=== PATIENT | female | born 1980 | race Caucasian/White ===

== ENCOUNTER → 2017-08-30 | Outpatient (CLI) | payer OTHER ==
[~2017-08-30] MED LIST: ALBU90OI6; AZIT250 PO; BIRTH CONTROL; BUPR150T2 PO; DULO60 PO; ESOM20; FAMO20 PO; FLUT110OIA INH; GLYC2 PO; HYDACE5 PO; HYDSUL200 PO; IBUP800 PO; IBUPROFEN; LEVFLO500 PO; LEVSOD25 PO; LEVSOD50 PO; LORA10 PO; LORA10ER PO; MULVITMINE PO; NAPR500 PO; OMEP20ER PO; ONDA8 PO; ONDA8ODT MM; PANT40 PO; POLTRIOPSO BOTHEYES; PROM25 PO; PROM25S PR; PSEU120ER PO; QVAR7.3 G1 INH; RXHYDACE PO; SERT50 PO; SUCR1 PO; VENL150ER PO; Valtrex1000 MG PO; [UNRECOGNIZED DRUG - OTHER] PO; [UNRECOGNIZED DRUG - REMARK]
[2017-08-30 14:57] LABS: Free Thyroxine 1.04 ng/dL (0.70-1.60)
[2017-08-30 15:02] LABS: Thyroid Stimulating Hormone 4.55 uIU/mL (0.360-4.800); Triiodothyronine, Free 2.93 pg/mL (2.18-3.98)
== END ==
LOC: LAB 13:08
PROVIDERS: Nurse Practitioner Family
DX: E03.9 Hypothyroidism, unspecified (principal)
CPT/HCPCS: 84439; 84443; 84481

== ENCOUNTER → 2017-10-19 | Outpatient (CLI) | payer OTHER | LOC: LAB 16:09 | DX: R20.0 Anesthesia of skin (principal); R20.2 Paresthesia of skin | CPT/HCPCS: 82607; 82746 ==

== ENCOUNTER → 2018-04-13 | Outpatient (CLI) | payer OTHER ==
[2018-04-13 15:08] LABS: Free Thyroxine 1.22 ng/dL (0.70-1.60)
[2018-04-13 15:10] LABS: Thyroid Stimulating Hormone 2.75 uIU/mL (0.360-4.800)
== END ==
LOC: LAB SHORT 09:30 → LAB 09:30
PROVIDERS: Registered Nurse
DX: E03.9 Hypothyroidism, unspecified (principal)
CPT/HCPCS: 84439; 84443

== ENCOUNTER 2019-06-08 05:38 | Emergency (ER) | payer OTHER ==
[~2019-06-08] VITALS: Ht 162.6 cm; Wt 72.6 kg
[~2019-06-08 05:38] MED LIST changes: +CLARITIN10 MG PO; -LORA10 PO
[2019-06-08] MEDS ORDERED: NUCALA100 MG SC (06:13)
[2019-06-08] MEDS ORDERED: FLUT1DIS8 INH (06:14)
[2019-06-08] MEDS ORDERED: CLIN300 PO (06:14)
== END 2019-06-08 07:30 | disposition home or self-care (01) ==
LOC: ER 05:38
DX: K04.7 Periapical abscess without sinus (principal); Z88.8 Allergy status to other drugs, medicaments and biological substances; Z88.0 Allergy status to penicillin; Z88.1 Allergy status to other antibiotic agents; Z79.899 Other long term (current) drug therapy
CPT/HCPCS: 96365; 99282-25

== ENCOUNTER → 2022-07-12 | Outpatient (CLI) | payer OTHER ==
[~2022-07-12] MED LIST changes: +CLIN300 PO; +FLUT1DIS8 INH; +NUCALA100 MG SC
== END | disposition home or self-care (01) ==
LOC: LAB SHORT 08:25
DX: F41.9 Anxiety disorder, unspecified (principal); F32.9 Major depressive disorder, single episode, unspecified; R53.83 Other fatigue; R20.2 Paresthesia of skin; Z98.84 Bariatric surgery status
CPT/HCPCS: 82306; 84439; 85651

== ENCOUNTER → 2022-07-28 | Outpatient (CLI) | payer OTHER | END | disposition home or self-care (01) | LOC: LAB 16:00 → LAB SHORT 16:00 | DX: R53.83 Other fatigue (principal); Z87.39 Personal history of other diseases of the musculoskeletal system and connective tissue | CPT/HCPCS: 86880 ==

== ENCOUNTER → 2022-09-27 | Outpatient (CLI) | payer OTHER ==
[2022-09-27 22:06] LABS: Bun/Creatinine Ratio 17.6 (12.0-20.0); Calcium, Blood 9.1 mg/dL (8.5-10.1); Creatinine, Blood 0.62 mg/dL (0.40-1.00); Potassium, Blood 4.5 mmol/L (3.5-5.5); Thyroid Stimulating Hormone 4.77 uIU/mL (0.360-4.800)
== END | disposition home or self-care (01) ==
LOC: LAB SHORT 15:56 → LAB 15:56
PROVIDERS: Nurse Practitioner Family
DX: R53.83 Other fatigue (principal); R73.01 Impaired fasting glucose
CPT/HCPCS: 80048; 83036; 84443

== ENCOUNTER → 2022-11-28 | Outpatient (CLI) | payer OTHER ==
[2022-11-28 16:35] LABS: BASOPHILS ABSOLUTE AUTO 0.04 K/mm3 (0.00-0.23); BASOPHILS PERCENT AUTO 1 % (0-2); EOSINOPHILS ABSOLUTE AUTO 0.03 K/mm3 (0.00-0.68); EOSINOPHILS PERCENT AUTO 1 % (0-6); Hematocrit 37.8 % (33.0-51.0); Hemoglobin 12.8 g/dL (11.5-16.0); IMMATURE GRAN ABSOLUTE AUTO 0.01 K/mm3 (0.00-0.10); IMMATURE GRAN PERCENT AUTO 0 % (0-1); LYMPHOCYTES ABSOLUTE AUTO 1.51 K/mm3 (0.84-5.20); LYMPHOCYTES PERCENT AUTO 30 % (21-46); MONOCYTES ABSOLUTE AUTO 0.27 K/mm3 (0.16-1.47); MONOCYTES PERCENT AUTO 5 % (4-13); Mean Corpuscular HGB 30.4 pg (26.0-34.0); Mean Corpuscular HGB Conc 33.9 g/dL (31.5-36.5); Mean Corpuscular Volume 90 fL (80-100); Mean Platelet Volume 9.3 fL (9.1-12.4); NEUTROPHILS ABSOLUTE AUTO 3.26 K/mm3 (1.96-9.15); NEUTROPHILS PERCENT AUTO 64 % (41-73); Platelet Count 292 K/mm3 (150-400); RDW Coefficient Variation 12.6 % (11.7-14.2); RDW Standard Deviation 41.4 fL (35.1-46.3); Red Blood Cell Count 4.21 M/mm3 (3.80-5.20); White Blood Cell Count 5.12 K/mm3 (4.00-11.30)
[2022-11-28 17:04] LABS: Albumin, Blood 3.8 g/dL (3.4-5.0); Albumin/Globulin Ratio 1.2 (0.8-1.8); Bilirubin, Total 0.3 mg/dL (0.1-1.0); Bun/Creatinine Ratio 15.6 (12.0-20.0); Calcium, Blood 8.8 mg/dL (8.5-10.1); Creatinine, Blood 0.83 mg/dL (0.40-1.00); Globulin, Blood 3.2 g/dL (2.2-4.0)
== END | disposition home or self-care (01) ==
LOC: LAB SHORT 15:21 → LAB 15:21
PROVIDERS: Plastic Surgery
DX: Z01.812 Encounter for preprocedural laboratory examination (principal)
CPT/HCPCS: 80053; 85025

== ENCOUNTER → 2022-11-29 | Outpatient (CLI) | payer OTHER ==
[2022-11-29 19:16] LABS: Percent Saturation 25.2 % (15.0-50.0); Uric Acid, Blood 3.8 mg/dL (2.6-6.0)
[2022-11-29 19:34] LABS: Thyroid Stimulating Hormone 1.53 uIU/mL (0.360-4.800)
== END | disposition home or self-care (01) ==
LOC: LAB SHORT 17:04
PROVIDERS: Internal Medicine Nephrology
DX: M10.9 Gout, unspecified (principal); D51.8 Other vitamin B12 deficiency anemias; D52.8 Other folate deficiency anemias; D50.9 Iron deficiency anemia, unspecified; R94.6 Abnormal results of thyroid function studies
CPT/HCPCS: 82607; 82728; 82746; 83540; 83550; 84443; 84550

== ENCOUNTER → 2022-12-05 | Outpatient (CLI) | payer OTHER ==
[2022-12-05 10:50] LABS: Bun/Creatinine Ratio 12.5 (12.0-20.0); Calcium, Blood 9.2 mg/dL (8.5-10.1); Creatinine, Blood 0.72 mg/dL (0.40-1.00)
== END | disposition home or self-care (01) ==
LOC: LAB 09:10 → LAB SHORT 09:10
PROVIDERS: Plastic Surgery
DX: Z13.89 Encounter for screening for other disorder (principal)
CPT/HCPCS: 80048

== ENCOUNTER 2025-06-23 14:12 | Emergency (ER) | payer OTHER ==
[~2025-06-23] VITALS: Ht 162.6 cm; Wt 63.5 kg
[2025-06-23 15:24] LABS: Source, Urine Clean Catch
[2025-06-23 15:30] LABS: Bilirubin, Urine Neg (Neg); Color, Urine Yellow (P-Yellow); Glucose Qualitative, Urine Neg (Neg); Ketones, Urine 1+ (Neg); Leukocyte Esterase, Urine Neg (Neg); Protein, Urine 1+ (Neg); Specific Gravity, Urine 1.025 (1.003-1.022); Urobilinogen, Urine NORM (Normal)
[2025-06-23 15:31] LABS: BASOPHILS ABSOLUTE AUTO 0.06 K/mm3 (0.00-0.23); BASOPHILS PERCENT AUTO 1 % (0-2); EOSINOPHILS ABSOLUTE AUTO 0.10 K/mm3 (0.00-0.68); EOSINOPHILS PERCENT AUTO 2 % (0-6); Hematocrit 41.5 % (33.0-51.0); Hemoglobin 13.9 g/dL (11.5-16.0); IMMATURE GRAN ABSOLUTE AUTO 0.01 K/mm3 (0.00-0.10); IMMATURE GRAN PERCENT AUTO 0 % (0-1); LYMPHOCYTES ABSOLUTE AUTO 2.00 K/mm3 (0.84-5.20); LYMPHOCYTES PERCENT AUTO 34 % (21-46); MONOCYTES ABSOLUTE AUTO 0.28 K/mm3 (0.16-1.47); MONOCYTES PERCENT AUTO 5 % (4-13); Mean Corpuscular HGB Conc 33.5 g/dL (31.5-36.5); Mean Corpuscular Volume 94 fL (80-100); NEUTROPHILS ABSOLUTE AUTO 3.46 K/mm3 (1.96-9.15); NEUTROPHILS PERCENT AUTO 59 % (41-73); NRBC ABSOLUTE 0.00 K/mm3 (0.00-0.02); NRBC Auto 0.0 /100 WBC (0.0-0.2); Platelet Count 357 K/mm3 (150-400); RDW Coefficient Variation 12.7 % (11.7-14.2); RDW Standard Deviation 43.8 fL (35.1-46.3)
[2025-06-23 16:11] LABS: Alanine Aminotransfer (ALT/SGP 15.0 U/L (12-78); Albumin, Blood 3.7 g/dL (3.4-5.0); Albumin/Globulin Ratio 1.1 (0.8-1.8); Anion Gap 6.0 mmol/L (3-11); Aspartate Aminotrans (AST/SGOT 12.0 U/L (12-37); Bilirubin, Total 0.2 mg/dL (0.1-1.0); Blood Urea Nitrogen 7.0 mg/dL (8-24); CO2, Blood 30.0 mmol/L (21-32); Calcium, Blood 9.0 mg/dL (8.5-10.1); Chloride, Blood 105.0 mmol/L (98-108); Creatinine, Blood 0.83 mg/dL (0.40-1.00); Globulin, Blood 3.4 g/dL (2.2-4.0); Glucose, Blood 100.0 mg/dL (70-99); Potassium, Blood 3.5 mmol/L (3.5-5.5); Sodium, Blood 137.0 mmol/L (136-145); Total Protein, Blood 7.1 g/dL (6.4-8.2)
[2025-06-23] MEDS ORDERED: 1/2 NS 250ml250 ML (17:08)
[2025-06-23] MEDS ORDERED: ESCI20 PO (17:08)
[2025-06-23] MEDS ORDERED: NUCALA100 MG/11 SC (17:08)
[2025-06-23] MEDS ORDERED: Budeprion Xl300 MG PO ×2 (17:08→17:09)
[2025-06-23] MEDS ORDERED: EUTHYROX50 MCG PO (17:10)
[2025-06-23] MEDS ORDERED: PROG100 PO (17:10)
[2025-06-23] MEDS ORDERED: CEFD300 PO (17:11)
[2025-06-23 18:00] VITALS: BP 129/80
== END 2025-06-23 18:15 | disposition home or self-care (01) ==
LOC: ER 14:12
PROVIDERS: Emergency Medicine
DX: K92.0 Hematemesis (principal); K02.9 Dental caries, unspecified; Z88.0 Allergy status to penicillin; Z88.1 Allergy status to other antibiotic agents; Z79.51 Long term (current) use of inhaled steroids; Z79.899 Other long term (current) drug therapy
CPT/HCPCS: 80053; 84703; 85025; 99284